=== PATIENT | male | born 1955 | race African-American/Black ===

== ENCOUNTER 2016-10-22 09:24 | Emergency (ER) | payer OTHER, MEDICAID ==
[~2016-10-22] VITALS: Ht 182.9 cm; Wt 75.0 kg
[~2016-10-22 09:24] MED LIST: ALPR0.5T96
[2016-10-22 09:51] VITALS: BP 142/80
== END 2016-10-22 14:56 | disposition home or self-care (01) ==
LOC: ER 14:53
DX: M79.89 Other specified soft tissue disorders (principal); F17.210 Nicotine dependence, cigarettes, uncomplicated
CPT/HCPCS: 99281

== ENCOUNTER 2017-03-28 01:52 | Emergency (ER) | payer MEDICARE, MEDICAID ==
[~2017-03-28] VITALS: Ht 182.9 cm; Wt 80.0 kg
[~2017-03-28 01:52] MED LIST changes: +ALPR0.5T; -ALPR0.5T96
[2017-03-28 06:08] VITALS: BP 129/71
== END 2017-03-28 07:48 | disposition home or self-care (01) ==
LOC: ER 01:52
DX: J06.9 Acute upper respiratory infection, unspecified (principal); F17.200 Nicotine dependence, unspecified, uncomplicated
CPT/HCPCS: 99283